=== PATIENT | male | born 1965 | race Caucasian/White ===

== ENCOUNTER 2020-03-17 19:39 | Emergency (ER) | payer BC ==
[2020-03-17 20:06] VITALS: BP 138/93; PULSE 75
[2020-03-17] MEDS ORDERED: Butorphanol 2 MG/ML SDV IM ONE (21:00)
[2020-03-17] MEDS ORDERED: Ondansetron 4 MG Tab.DIS PO ONE (21:01)
[2020-03-17 21:27] LABS: ANION GAP 12.6 mEq/L (7-13); CHLORIDE,CL 103 mmol/L (98-107); SODIUM,NA 142 mmol/L (136-145)
--- NOTE | 2020-03-17 21:33 | EDM.PDOC ---
ED HPI GENERAL MEDICAL PROBLEM - General Chief Complaint: General Stated Complaint: TEMP 96.4*, HEAD ACHE, NAUSEA, CHILLS Time Seen by Provider: 03/17/20 20:20 Source of Information: Reports: Patient, RN History Limitations: Reports: No Limitations - History of Present Illness INITIAL COMMENTS - FREE TEXT/NARRATIVE: ED with primary c/o headache. Has had "migraine" headaches in past and feels same. Unrelieved with ibuprofen. Sensitive to light and unable to sleep. chills and body aches today. No known COVID exposure. No urinary sx. Headaches started at back of neck and moved upward. Similar pattern to previous headaches. Headache Pain Score (Numeric/FACES): 8 - Related Data Allergies Allergy/AdvReac Type Severity Reaction Status Date / Time No Known Allergies Allergy Verified 03/17/20 20:08 Home Meds: Home Meds Aspirin [Halfprin] 81 mg PO DAILY 04/18/14 [History] Cetirizine [ZyrTEC] 10 mg PO DAILY 04/18/14 [History] Sertraline HCl 100 mg PO DAILY 04/18/14 [History] metFORMIN [Glucophage] 1,000 mg PO BIDM 04/18/14 [History] Past Medical History Psychiatric History: Reports: Depression Endocrine/Metabolic History: Reports: Diabetes, Type II - Infectious Disease History Infectious Disease History: Reports: Hepatitis C - Past Surgical History Musculoskeletal Surgical History: Reports: Arthroscopic Knee Social & Family History - Family History Family Medical History: Noncontributory - Tobacco Use Smoking Status *Q: Never Smoker Second Hand Smoke Exposure: No - Caffeine Use Caffeine Use: Reports: None - Recreational Drug Use Recreational Drug Use: No ED ROS GENERAL - Review of Systems Review Of Systems: Comprehensive ROS is negative, except as noted in HPI. ED EXAM, GENERAL - Physical Exam Exam: See Below Exam Limited By: No Limitations General Appearance: Alert, Mild Distress Eye Exam: Bilateral Eye: EOMI, PERRL Ears: Normal External Exam, Normal TMs Nose: Normal Inspection Throat/Mouth: Normal Inspection Head: Atraumatic, Normocephalic Neck: Normal Inspection, Full Range of Motion Respiratory/Chest: No Respiratory Distress, Lungs Clear, Normal Breath Sounds Cardiovascular: Normal Peripheral Pulses, Regular Rate, Rhythm GI/Abdominal: Normal Bowel Sounds, Soft Back Exam: Normal Inspection Neurological: Alert, Oriented, CN II-XII Intact, Normal Cognition, Normal Gait, No Motor/Sensory Deficits. No: Memory Loss Recent Events, Sensory/Motor Deficit Psychiatric: Normal Affect, Normal Mood Skin Exam: Warm, Dry, Intact, Normal Color Course - Vital Signs Last Recorded V/S: Last Vital Signs Temp 96.4 F L 03/17/20 20:04 Pulse 75 03/17/20 20:04 Resp 18 03/17/20 20:04 BP 138/93 H 03/17/20 20:04 Pulse Ox 98 03/17/20 20:04 - Orders/Labs/Meds Orders: Active Orders 24 hr Category Date Time Status CORONAVIRUS COVID-19 PCR PHL Stat Lab 03/17/20 19:45 Ordered CULTURE BLOOD [BC] Stat Lab 03/17/20 20:53 Received Isolation [COMM] Routine Oth 03/17/20 19:46 Active Labs: Laboratory Tests 03/17/20 03/17/20 03/17/20 Range/Units 19:45 20:53 20:53 WBC 6.6 (5.0-10.0) 10^3/uL RBC 5.15 (4.6-6.2) 10^6/uL Hgb 15.3 (14.0-18.0) g/dL Hct 42.7 (40.0-54.0) % MCV 82.9 (80-100) fL MCH 29.7 (27.0-34.0) pg MCHC 35.8 H (33.0-35.0) g/dL Plt Count 130 L (150-450) 10^3/uL Neut % (Auto) 61.9 (42.2-75.2) % Lymph % (Auto) 28.5 (20.5-50.1) % [place] % (Auto) 6.7 (2-8) % Eos % (Auto) 2.1 (1.0-3.0) % Baso % (Auto) 0.8 (0.0-1.0) % Sodium 142 (136-145) mmol/L Potassium 4.6 (3.5-5.1) mmol/L Chloride 103 (98-107) mmol/L Carbon Dioxide 31 (21-32) mmol/L Anion Gap 12.6 (7-13) mEq/L BUN 17 (7-18) mg/dL Creatinine 1.08 (0.70-1.30) mg/dL Est Cr Clr Drug Dosing 78.86 mL/min Estimated GFR (MDRD) > 60 BUN/Creatinine Ratio 15.7 (No establ ref range) Glucose 136 H (74-99) mg/dL Lactic Acid (0.4-2.0) mmol/L Calcium 8.9 (8.5-10.1) mg/dL Total Bilirubin 0.5 (0.2-1.0) mg/dL AST 36 (15-37) U/L ALT 62 (16-63) U/L Alkaline Phosphatase 41 L (46-116) U/L Total Protein 7.3 (6.4-8.2) g/dL Albumin 4.0 (3.4-5.0) g/dL Globulin 3.3 Albumin/Globulin Ratio 1.2 SARS CoV-2 RNA Rapid LUIS FERNANDO Negative (NEGATIVE) 03/17/20 Range/Units 20:53 WBC (5.0-10.0) 10^3/uL RBC (4.6-6.2) 10^6/uL Hgb (14.0-18.0) g/dL Hct (40.0-54.0) % MCV (80-100) fL MCH (27.0-34.0) pg MCHC (33.0-35.0) g/dL Plt Count (150-450) 10^3/uL Neut % (Auto) (42.2-75.2) % Lymph % (Auto) (20.5-50.1) % Florence % (Auto) (2-8) % Eos % (Auto) (1.0-3.0) % Baso % (Auto) (0.0-1.0) % Sodium (136-145) mmol/L Potassium (3.5-5.1) mmol/L Chloride (98-107) mmol/L Carbon Dioxide (21-32) mmol/L Anion Gap (7-13) mEq/L BUN (7-18) mg/dL Creatinine (0.70-1.30) mg/dL Est Cr Clr Drug Dosing mL/min Estimated GFR (MDRD) BUN/Creatinine Ratio (No establ ref range) Glucose (74-99) mg/dL Lactic Acid 2.8 H* (0.4-2.0) mmol/L Calcium (8.5-10.1) mg/dL Total Bilirubin (0.2-1.0) mg/dL AST (15-37) U/L ALT (16-63) U/L Alkaline Phosphatase (46-116) U/L Total Protein (6.4-8.2) g/dL Albumin (3.4-5.0) g/dL Globulin Albumin/Globulin Ratio SARS CoV-2 RNA Rapid LUIS FERNANDO (NEGATIVE) Meds: Medications Discontinued Medications Generic Name Dose Route Start Last Admin Trade Name Freq PRN Reason Stop Dose Admin Butorphanol Tartrate 1 mg 03/17/20 21:00 03/17/20 21:07 Stadol IM 03/17/20 21:01 1 mg ONETIME ONE Administration Ondansetron HCl 4 mg 03/17/20 21:01 03/17/20 21:07 Zofran Odt PO 03/17/20 21:02 4 mg ONETIME ONE Administration - Re-Assessments/Exams Free Text/Narrative Re-Assessment/Exam: headache resolving prior to discharge Departure - Departure Time of Disposition: 21:31 Disposition: Home, Self-Care 01 Condition: Good Clinical Impression: Tension type headache Qualifiers: Headache chronicity pattern: acute headache Intractability: not intractable Qualified Code(s): G44.209 - Tension-type headache, unspecified, not intractable - Discharge Information *PRESCRIPTION DRUG MONITORING PROGRAM REVIEWED*: No *COPY OF PRESCRIPTION DRUG MONITORING REPORT IN PATIENT BLAKE: No Referrals: Missy Trujillo MD [Primary Care Provider] - Forms: ED Department Discharge Additional Instructions: rest fluids follow up if symptoms worsen Sepsis Event Note (ED) - Evaluation Sepsis Screening Result: No Definite Risk - Focused Exam Vital Signs: Vital Signs Temp Pulse Resp BP Pulse Ox 03/17/20 20:04 96.4 F L 75 18 138/93 H 98 - My Orders Last 24 Hours: My Active Orders 03/17/20 19:45 CORONAVIRUS COVID-19 PCR PHL Stat 03/17/20 19:46 Isolation [COMM] Routine 03/17/20 20:53 CULTURE BLOOD [BC] Stat - Assessment/Plan Last 24 Hours: My Active Orders 03/17/20 19:45 CORONAVIRUS COVID-19 PCR PHL Stat 03/17/20 19:46 Isolation [COMM] Routine 03/17/20 20:53 CULTURE BLOOD [BC] Stat
== END 2020-03-17 21:36 | disposition home or self-care (01) ==
LOC: DL.ED 19:39
DX: G44.209 Tension-type headache, unspecified, not intractable (principal); F32.9 Major depressive disorder, single episode, unspecified; E11.9 Type 2 diabetes mellitus without complications; Z20.828 Contact with and (suspected) exposure to other viral communicable diseases; Z79.899 Other long term (current) drug therapy; Z79.84 Long term (current) use of oral hypoglycemic drugs; Z79.82 Long term (current) use of aspirin
CPT/HCPCS: 36415; 80053; 83605; 85025; 87040; 87635; 87804; 96372; 99284; A9270; J0595; U0002

== ENCOUNTER 2022-02-04 18:05 | Emergency (ER) | payer BC, OTHER ==
[2022-02-04 18:41] VITALS: BP 141/76; PULSE 32
[2022-02-04 19:16] LABS: ANION GAP 14.4 mEq/L (7-13)
== END 2022-02-04 19:52 ==
LOC: DL.ED 18:05
DX: I44.2 Atrioventricular block, complete (principal); E11.9 Type 2 diabetes mellitus without complications; F32.A Depression, unspecified; Z79.899 Other long term (current) drug therapy
CPT/HCPCS: 36415; 71045; 80053; 83605; 84484; 85025; 85610; 93005; 99285

== ENCOUNTER 2022-02-08 08:01 | Emergency (ER) | payer OTHER ==
[2022-02-08] MEDS ORDERED: Cyclobenzaprine 10 MG Tab PO ONE ×2 (08:02→08:50)
[2022-02-08] MEDS ORDERED: Acetaminophen/HYDROcodone 325-10 MG Tab PO ONE (08:02)
[2022-02-08] MEDS ORDERED: Ondansetron 4 MG/2 ML SDV IV ONE (08:49)
[2022-02-08] MEDS ORDERED: Sodium Chloride 0.9% 10 ML Syringe FLUSH PRN (08:50)
[2022-02-08] MEDS ORDERED: Dexamethasone 4 MG/ML SDV IVPUSH ONE (08:50)
[2022-02-08] MEDS ORDERED: HYDROmorphone 1 MG/ML Syringe IVPUSH ONE ×2 (08:50→10:15)
[2022-02-08] MEDS ORDERED: Acetaminophen/HYDROcodone 325-10 MG Tab ONE (10:35)
[2022-02-08] MEDS ORDERED: Cyclobenzaprine 10 MG Tab ONE (10:35)
== END 2022-02-08 10:44 | disposition home or self-care (01) ==
LOC: DL.ED 08:01 → MERGE 08:01 → DL.ED 10:44
DX: M62.830 Muscle spasm of back (principal); E11.9 Type 2 diabetes mellitus without complications; E66.9 Obesity, unspecified; Z68.35 Body mass index [BMI] 35.0-35.9, adult; Z79.84 Long term (current) use of oral hypoglycemic drugs; Z79.899 Other long term (current) drug therapy
CPT/HCPCS: 96374; 96375; 96376; 99283; A9270; J1100; J1170; J2405; J3490; 99284

== ENCOUNTER 2023-07-08 06:53 | Day surgery (SDC) | payer OTHER ==
[2023-07-08] MEDS ORDERED: fentaNYL 100 MCG/2 ML SDV IV ONE (06:54)
[2023-07-08] MEDS ORDERED: Midazolam 1 MG/ML 2 ML SDV IV ONE (06:54)
[2023-07-08] MEDS ORDERED: fentaNYL 100 MCG/2 ML SDV ONE (07:12)
[2023-07-08] MEDS ORDERED: Midazolam 1 MG/ML 2 ML SDV ONE (07:12)
[2023-07-08] MEDS: Dextrose 5%-0.45% NaCl 1,000 ML IV SCH (07:26)
[2023-07-08] MEDS: fentaNYL 100 MCG/2 ML SDV IV ONE ×4 (08:03→08:19)
[2023-07-08] MEDS: Midazolam 1 MG/ML 2 ML SDV IV ONE ×6 (08:04→08:17)
== END 2023-07-08 10:15 | disposition home or self-care (01) ==
LOC: DL.ENDO 06:53
PROVIDERS: ATTEND Internal Medicine Gastroenterology
DX: Z12.11 Encounter for screening for malignant neoplasm of colon (principal); D12.2 Benign neoplasm of ascending colon; K64.8 Other hemorrhoids; E11.9 Type 2 diabetes mellitus without complications; G47.33 Obstructive sleep apnea (adult) (pediatric); F32.A Depression, unspecified; E66.09 Other obesity due to excess calories; Z68.36 Body mass index [BMI] 36.0-36.9, adult
CPT/HCPCS: 45385; J2250; J3010; J7042

== ENCOUNTER 2024-01-03 18:49 | Emergency (ER) | payer OTHER ==
[2024-01-03] MEDS: Lidocaine 1% 5 ML VIAL INJECT ONE (19:47)
[2024-01-03] MEDS: Diphtheria,Pertussis(Acell),Tetanus Vaccine 0.5 ML Syringe IM ONE (19:47)
[2024-01-03] MEDS: Bacitracin Oint 1 GM U/D Packet TOP ONE (20:05)
== END 2024-01-03 20:13 | disposition home or self-care (01) ==
LOC: DL.ED 18:49
DX: S61.211A Laceration without foreign body of left index finger without damage to nail, initial encounter (principal); E11.9 Type 2 diabetes mellitus without complications; E66.9 Obesity, unspecified; Z23 Encounter for immunization; Z86.16 Personal history of COVID-19; Z79.899 Other long term (current) drug therapy; Z68.33 Body mass index [BMI] 33.0-33.9, adult; W01.0XXA Fall on same level from slipping, tripping and stumbling without subsequent striking against object, initial encounter
CPT/HCPCS: 12002; 90471; 90715; 99283; A9270; J3490